=== PATIENT | female | born 1990 | race Caucasian/White ===

== ENCOUNTER 2022-11-09 06:50 | Inpatient (IN) | payer BC ==
[~2022-11-09 06:50] MED LIST: Ropivacaine 0.2% PF 2 MG/ML 20 ML SDV ONE
[2022-11-09] MEDS ORDERED: Sodium Chloride 0.9% 10 ML Syringe FLUSH PRN (07:29)
[2022-11-09] MEDS ORDERED: Nalbuphine 10 MG/0.5 ML Syringe IVPUSH PRN (07:29)
[2022-11-09] MEDS ORDERED: Oxytocin/Lactated Ringers 10 UNIT/1,000 ML BAG IV SCH (07:30)
[2022-11-09] MEDS ORDERED: Ampicillin 2 GM in Sodium Chloride 0.9% 100 ML IV ONE (08:00)
[2022-11-09] MEDS: Oxytocin/Lactated Ringers 10 UNIT/1,000 ML BAG IV SCH ×2 (08:11→23:31)
[2022-11-09] MEDS: Lactated Ringers 1,000 ML IV SCH ×2 (08:11→15:04)
[2022-11-09] MEDS: Sodium Chloride 0.9% 10 ML Syringe FLUSH SCH (09:46)
[2022-11-09] MEDS ORDERED: Bupivacaine/fentaNYL/NS 100 ML Bag EPIDUR PRN (11:55)
[2022-11-09] MEDS ORDERED: ePHEDrine 50 MG/ML SDV IVPUSH PRN (11:55)
[2022-11-09] MEDS ORDERED: diphenhydrAMINE 50 MG/ML SDV IVPUSH PRN (11:55)
[2022-11-09] MEDS ORDERED: fentaNYL 100 MCG/2 ML SDV EPIDUR PRN (11:55)
[2022-11-09] MEDS: Ampicillin 1 GM in Sodium Chloride 0.9% 100 ML IV SCH ×3 (12:10→19:51)
[2022-11-09] MEDS: Ondansetron 4 MG/2 ML SDV IVPUSH PRN ×2 (15:04→22:30)
[2022-11-10] MEDS ORDERED: Ibuprofen 600 MG Tab PO PRN (01:07)
[2022-11-10] MEDS ORDERED: Acetaminophen 325 MG Tab PO PRN (01:07)
[2022-11-10] MEDS ORDERED: Witch Hazel Medicated Pads 40/Jar TOP PRN (01:07)
[2022-11-10] MEDS ORDERED: Benzocaine/Menthol 20%-0.5% Spray 78 GM Cannister TOP PRN (01:07)
[2022-11-10] MEDS ORDERED: Docusate Sodium 100 MG Cap PO PRN (01:07)
[2022-11-10] MEDS: Sodium Chloride 0.9% 10 ML Syringe FLUSH SCH (07:39)
[2022-11-10] MEDS: Ampicillin 1 GM in Sodium Chloride 0.9% 100 ML IV SCH (07:39)
[2022-11-10] MEDS: Prenatal Multivitamin with Calcium/Folic Acid/Iron Tab PO SCH (08:03)
[2022-11-11] MEDS: Prenatal Multivitamin with Calcium/Folic Acid/Iron Tab PO SCH (13:34)
== END 2022-11-11 12:53 | disposition home or self-care (01) | DRG 560 ==
LOC: JD.OB 06:50 → OBSVTOIN 23:56 → JD.OB 23:57
PROVIDERS: ADMIT Obstetrics & Gynecology; ATTEND Obstetrics & Gynecology
PROC: 00HU33Z Insertion of Infusion Device into Spinal Canal, Percutaneous Approach (ICD-10-PCS; 2022-11-09)
PROC: 3E0334Z Introduction of Serum, Toxoid and Vaccine into Peripheral Vein, Percutaneous Approach (ICD-10-PCS; 2022-11-09)
PROC: 10E0XZZ Delivery of Products of Conception, External Approach (ICD-10-PCS; principal; 2022-11-10)
PROC: 10907ZC Drainage of Amniotic Fluid, Therapeutic from Products of Conception, Via Natural or Artificial Opening (ICD-10-PCS; 2022-11-10)
PROC: 3E033VJ Introduction of Other Hormone into Peripheral Vein, Percutaneous Approach (ICD-10-PCS; 2022-11-10)
PROC: 3E0R3BZ Introduction of Anesthetic Agent into Spinal Canal, Percutaneous Approach (ICD-10-PCS; 2022-11-10)
DX: O48.0 Post-term pregnancy (principal); O26.893 Other specified pregnancy related conditions, third trimester; O99.824 Streptococcus B carrier state complicating childbirth; O66.0 Obstructed labor due to shoulder dystocia; Z37.0 Single live birth; Z3A.40 40 weeks gestation of pregnancy; Z67.11 Type A blood, Rh negative; Z98.890 Other specified postprocedural states
CPT/HCPCS: 01967; 36415; 36430; 51702; 59025; 59200; 59409; 85025; 85461; 86592; 86850; 86900; 86901; A9270-GY; J0290; J2405; J2590; J2790; J2795; J3490; J7120

== ENCOUNTER 2024-06-13 06:57 | Inpatient (IN) | payer BC ==
[2024-06-13] MEDS ORDERED: Nalbuphine 10 MG/1 ML Vial IVPUSH PRN (07:32)
[2024-06-13] MEDS ORDERED: Ondansetron 4 MG/2 ML SDV IVPUSH PRN (07:32)
[2024-06-13] MEDS ORDERED: Sodium Chloride 0.9% 10 ML Syringe FLUSH PRN (07:32)
[2024-06-13] MEDS ORDERED: Lidocaine 1% 50 ML MDV INJECT PRN (07:32)
[2024-06-13] MEDS ORDERED: Oxytocin/0.9 % Sodium Chloride 30 UNIT/500 ML BAG IV SCH ×2 (07:45→22:33)
[2024-06-13 08:27] LABS: BASOPHILS PERCENT AUTO 0.4 % (0.0-1.0); EOSINOPHILS ABSOLUTE AUTO 0.1 K/mm3 (0.0-0.4); EOSINOPHILS PERCENT AUTO 0.7 % (0.0-6.0); HEMATOCRIT 36.1 % (37.0-47.0); HEMOGLOBIN 12.3 gm/dl (12.0-16.0); IMMATURE GRAN ABSOLUTE AUTO 0.09 K/mm3 (0.00-0.05); IMMATURE GRAN PERCENT AUTO 1.1 % (0.0-0.4); LYMPHOCYTES ABSOLUTE AUTO 1.4 K/mm3 (1.0-4.8); LYMPHOCYTES PERCENT AUTO 16.3 % (24.0-44.0); MEAN CORPUSCULAR HEMOGLOBIN 30.4 pg (28.0-32.0); MEAN CORPUSCULAR HGB CONC 34.1 g/dl (32.0-36.0); MEAN CORPUSCULAR VOLUME 89.4 fl (83.0-99.0); MEAN PLATELET VOLUME 9.9 fl (9.4-12.3); MONOCYTES ABSOLUTE AUTO 0.6 K/mm3 (0.0-0.8); MONOCYTES PERCENT AUTO 7.4 % (0.0-8.0); NEUTROPHILS ABSOLUTE AUTO 6.2 K/mm3 (1.8-7.7); NEUTROPHILS PERCENT AUTO 74.1 % (41.0-71.0); PLATELET COUNT,PLT 206 K/mm3 (150-400); RED BLOOD CELL COUNT 4.04 M/mm3 (4.10-5.30); WHITE BLOOD CELL COUNT,WBC 8.33 K/mm3 (3.9-11.3)
[2024-06-13] MEDS: Oxytocin/0.9 % Sodium Chloride 30 UNIT/500 ML BAG IV SCH (10:18)
[2024-06-13] MEDS: Lactated Ringers 1,000 ML IV SCH (10:18)
[2024-06-13] MEDS ORDERED: diphenhydrAMINE 50 MG/ML SDV IVPUSH PRN (13:05)
[2024-06-13] MEDS ORDERED: ePHEDrine 50 MG/ML SDV IVPUSH PRN (13:05)
[2024-06-13] MEDS: Bupivacaine/fentaNYL/NS 100 ML Bag EPIDUR PRN (13:22)
[2024-06-13] MEDS: Calcium Carbonate 500 MG Tab.Chew PO PRN (16:38)
[2024-06-13] MEDS ORDERED: Magnesium Hydroxide 400 MG/5 ML Susp 30 ML Cup PO PRN (22:33)
[2024-06-13] MEDS ORDERED: Simethicone 80 MG Tab.Chew PO PRN (22:33)
[2024-06-13] MEDS ORDERED: Hydrocortisone Acetate 25 MG Supp RECTAL PRN (22:33)
[2024-06-13] MEDS: Ibuprofen 600 MG Tab PO SCH (23:23)
[2024-06-13] MEDS: Benzocaine/Menthol 20%-0.5% Spray 78 GM Cannister TOP PRN (23:48)
[2024-06-13] MEDS: Witch Hazel Medicated Pads 40/Jar TOP PRN (23:48)
[2024-06-14] MEDS: Acetaminophen 325 MG Tab PO PRN (08:12)
[2024-06-14] MEDS: Docusate Sodium 100 MG Cap PO PRN (08:12)
[2024-06-14] MEDS: Prenatal Multivitamin with Calcium/Folic Acid/Iron Tab PO SCH (08:13)
== END 2024-06-15 17:36 | disposition home or self-care (01) | DRG 560 ==
LOC: JD.OB 06:57 → OBSVTOIN 21:11 → JD.OB 21:22
PROVIDERS: ADMIT Obstetrics & Gynecology; ATTEND Obstetrics & Gynecology
PROC: 10E0XZZ Delivery of Products of Conception, External Approach (ICD-10-PCS; principal; 2024-06-13)
PROC: 10907ZC Drainage of Amniotic Fluid, Therapeutic from Products of Conception, Via Natural or Artificial Opening (ICD-10-PCS; 2024-06-13)
PROC: 3E0R3BZ Introduction of Anesthetic Agent into Spinal Canal, Percutaneous Approach (ICD-10-PCS; 2024-06-13)
PROC: 00HU33Z Insertion of Infusion Device into Spinal Canal, Percutaneous Approach (ICD-10-PCS; 2024-06-13)
PROC: 0KQM0ZZ Repair Perineum Muscle, Open Approach (ICD-10-PCS; 2024-06-13)
DX: O26.893 Other specified pregnancy related conditions, third trimester (principal); Z3A.40 40 weeks gestation of pregnancy; Z37.0 Single live birth; O48.0 Post-term pregnancy; O77.0 Labor and delivery complicated by meconium in amniotic fluid; O69.81X0 Labor and delivery complicated by cord around neck, without compression, not applicable or unspecified; O70.1 Second degree perineal laceration during delivery; Z67.11 Type A blood, Rh negative
CPT/HCPCS: 01967; 36415; 51701; 59025; 59409; 85025; 86592; 86850; 86900; 86901; A9270-GY; C1758; J3490; J7120; J7999